=== PATIENT | female | born 1985 | race Caucasian/White ===

== ENCOUNTER 2019-01-11 10:15 | Emergency (ER) | payer MEDICAID, OTHER ==
[~2019-01-11] VITALS: Ht 167.6 cm; Wt 66.2 kg
[2019-01-11 10:49] VITALS: BP 121/60
== END 2019-01-11 11:33 | disposition left against medical advice (07) ==
LOC: ER 10:15
DX: N89.8 Other specified noninflammatory disorders of vagina (principal); Z53.21 Procedure and treatment not carried out due to patient leaving prior to being seen by health care provider

== ENCOUNTER 2019-01-12 09:56 | Emergency (ER) | payer MEDICAID ==
[~2019-01-12] VITALS: Ht 167.6 cm; Wt 66.2 kg
[2019-01-12 10:13] VITALS: BP 119/87
== END 2019-01-12 11:16 | disposition home or self-care (01) ==
LOC: ER 09:56
DX: I67.1 Cerebral aneurysm, nonruptured (principal); J45.909 Unspecified asthma, uncomplicated; M19.90 Unspecified osteoarthritis, unspecified site; Z76.0 Encounter for issue of repeat prescription

== ENCOUNTER 2019-01-21 15:29 | Emergency (ER) | payer MEDICAID ==
[~2019-01-21] VITALS: Ht 167.6 cm; Wt 67.6 kg
[2019-01-21 15:51] VITALS: BP 117/79
== END 2019-01-21 16:23 | disposition home or self-care (01) ==
LOC: ER 15:39
DX: R51 Headache (principal); M19.90 Unspecified osteoarthritis, unspecified site; J45.909 Unspecified asthma, uncomplicated; E07.9 Disorder of thyroid, unspecified; Z76.0 Encounter for issue of repeat prescription

== ENCOUNTER 2019-06-04 17:46 | Emergency (ER) | payer MEDICAID ==
[~2019-06-04] VITALS: Ht 167.6 cm; Wt 66.2 kg
[2019-06-04 18:27] VITALS: BP 137/93
== END 2019-06-04 18:59 | disposition home or self-care (01) ==
LOC: ER 17:53
DX: K58.9 Irritable bowel syndrome, unspecified (principal); Z76.0 Encounter for issue of repeat prescription; Z86.39 Personal history of other endocrine, nutritional and metabolic disease

== ENCOUNTER 2019-06-14 19:11 | Emergency (ER) | payer MEDICAID ==
[~2019-06-14] VITALS: Ht 167.6 cm; Wt 66.2 kg
[2019-06-14 21:33] VITALS: BP 137/95
== END 2019-06-14 21:46 | disposition home or self-care (01) ==
LOC: ER 19:14
DX: E03.9 Hypothyroidism, unspecified (principal); Z76.0 Encounter for issue of repeat prescription